=== PATIENT | female | born 1995 | race Caucasian/White ===

== ENCOUNTER 2016-11-24 17:35 | Emergency (ER) | payer OTHER ==
[2016-11-24 18:40] LABS: Bilirubin Negative (Negative); Blood, Urine Trace (Negative); Glucose, Urine (Dipstick) Negative (Negative); Ketone, Urine 40 mg/dL (Negative); Nitrite Negative (Negative); Protein, Urine (Dipstick) Negative (Neg-Trace); Urobilinogen 0.2 mg/dL (0.2-1.0)
[2016-11-24 18:50] LABS: Bacteria/HPF 2+ HPF (None Seen)
--- NOTE | 2016-11-24 20:20 | CT ---
NONCONTRAST CT ABDOMEN AND PELVIS 11/24/16 HISTORY: Sudden onset of left flank pain Petey at 1000 hours. Multiple episodes of vomiting and decreased ap petite. COMPARISON: None available. FINDINGS: There is mild left hydronephrosis and hydroureter with mild perinephric stranding seen on the left a s well as periureteral stranding. There is a 3 mm calculus seen at the level of the left UVJ suggest ing partially obstructing left ureteral calculus. No right renal or ureteral calculus is visualized. The lung bases, liver, spleen, pancreas, bilateral adrenal glands, right kidney, urinary bladder, an d uterus demonstrate a grossly normal enhanced CT appearance. Small amount of free fluid is seen in the pelvis. The appendix is normal in caliber. IMPRESSION: 1. Partially obstructing left UVJ calculus. 2. Small amount of free fluid in the pelvis. POS: [facility]
== END 2016-11-24 20:00 | disposition home or self-care (01) ==
LOC: SCSER 17:35
DX: N13.2 Hydronephrosis with renal and ureteral calculous obstruction (principal)
CPT/HCPCS: 74176; 81003; 81015; 81025